=== PATIENT | male | born 1945 | race Asian ===

== ENCOUNTER 2019-09-05 07:31 | Emergency (ER) | payer MEDICARE, OTHER ==
[~2019-09-05] VITALS: Ht 165.1 cm; Wt 63.6 kg
[2019-09-05 07:41] VITALS: BP 146/85
[2019-09-05] MEDS ORDERED: LOSA50TA64 PO (07:50)
[2019-09-05] MEDS ORDERED: AMLO10TA7 PO (07:50)
[2019-09-05] MEDS ORDERED: MethylPREDNISolone SOD SUCC 125 MG/2 ML VIAL IM ONE (08:15)
== END 2019-09-05 08:26 | disposition home or self-care (01) ==
LOC: EMS 07:38
DX: L50.9 Urticaria, unspecified (principal); I10 Essential (primary) hypertension; Z79.899 Other long term (current) drug therapy
CPT/HCPCS: 96372; 99283; J2930